=== PATIENT | female | born 1965 | race Caucasian/White ===

== ENCOUNTER 2021-09-20 13:39 | Emergency (ER) | payer OTHER ==
[~2021-09-20 13:39] MED LIST: PRINIVIL10 MG PO
== END 2021-09-20 16:48 | disposition home or self-care (01) ==
LOC: FER 13:39
DX: M25.561 Pain in right knee (principal); E11.9 Type 2 diabetes mellitus without complications; I10 Essential (primary) hypertension; Z87.891 Personal history of nicotine dependence; Z88.1 Allergy status to other antibiotic agents; Z88.2 Allergy status to sulfonamides
CPT/HCPCS: 96372; 99283; J1100; J1885